=== PATIENT | female | born 1940 | race Hispanic/Latino ===

== ENCOUNTER → 2019-12-30 | Outpatient (CLI) | payer MEDICARE | END | disposition home or self-care (01) | LOC: LAB 12:25 | PROVIDERS: ATTEND Internal Medicine Cardiovascular Disease | DX: I65.21 Occlusion and stenosis of right carotid artery (principal) ==

== ENCOUNTER → 2020-01-01 | Outpatient (CLI) | payer MEDICARE ==
[~2020-01-01] MED LIST: IOHEXOL-350 50ML VIAL IV ONE
== END | disposition home or self-care (01) ==
LOC: RAH 07:57
PROVIDERS: ATTEND Internal Medicine Cardiovascular Disease
DX: I65.21 Occlusion and stenosis of right carotid artery (principal); I70.0 Atherosclerosis of aorta
CPT/HCPCS: 70498; Q9967

== ENCOUNTER 2020-10-15 11:00 | Inpatient (IN) | payer MEDICARE ==
[~2020-10-15] VITALS: Ht 165.1 cm; Wt 54.6 kg
[2020-10-15 13:13] LABS: BASOPHILS % (AUTO) 1.1 % (0.0-5.0); HEMATOCRIT 33.2 % (36-48); LYMPHOCYTES % (AUTO) 16.9 % (21.0-51.0); MEAN CORPUSCULAR HEMOGLOBIN 32.2 pg (27.0-33.0); MEAN CORPUSCULAR HGB CONC 32.5 g/dL (32.0-36.0); MEAN CORPUSCULAR VOLUME 99.1 fL (79-99); MONOCYTES % (AUTO) 11.8 % (3.0-13.0); PLATELET COUNT (AUTO) 263 K/uL (130-400); RED BLOOD CELL COUNT(AUTO) 3.35 MIL/uL (4.00-5.50); RED CELL DISTRIBUTION WIDTH 13.4 % (11.0-15.5); WHITE BLOOD COUNT (AUTO) 5.3 K/uL (4.8-10.8)
[2020-10-15 13:31] LABS: CREATININE 0.7 mg/dL (0.5-1.5)
[2020-10-20 09:12] VITALS: BP 153/70
[2020-10-20] MEDS ORDERED: METH25VI11 IJ (12:37)
[2020-10-20] MEDS ORDERED: ALEN35TA53 PO (12:37)
[2020-10-20] MEDS ORDERED: SULFASALAZINE PO (12:38)
[2020-10-20] MEDS ORDERED: ASPI-1197 PO (12:38)
[2020-10-20] MEDS ORDERED: FOLI1 PO (12:38)
[2020-10-20] MEDS ORDERED: AMLO-257 PO (12:38)
[2020-10-20] MEDS ORDERED: GABA300C PO (12:38)
[2020-10-20] MEDS ORDERED: CHOL200074 PO (12:38)
[2020-10-20] MEDS ORDERED: HYDR200T4 PO (12:38)
[2020-10-20] MEDS ORDERED: PRILOSEC PO (12:38)
[2020-10-20] MEDS ORDERED: METO-408 PO (12:38)
[2020-10-20] MEDS ORDERED: LEVO50CA4 PO (12:38)
[2020-10-20] MEDS ORDERED: CLOP75TA14 PO (12:38)
[2020-10-20] MEDS ORDERED: ATOR20TA65 PO (12:38)
[2020-10-20] MEDS ORDERED: CITA10TA89 PO (12:38)
[2020-10-20] MEDS ORDERED: DOCU100T9 PO (12:38)
[2020-10-21] VITALS (42 sets, daily range): BP systolic 105–188; BP diastolic 40–98
[2020-10-21] MEDS ORDERED: 0.9%NACL 1000ML 1,000 ML IV ONE ×2 (05:36→09:37)
[2020-10-21 06:21] LABS: INR 0.99 (0.85-1.15); PROTHROMBIN TIME 10.8 SEC (9.6-11.6)
[2020-10-21 06:22] LABS: PARTIAL THROMBOPLASTIN TIME 31.6 SEC (26.3-35.5)
[2020-10-21 06:41] LABS: APPEARANCE,URINE CLEAR (CLEAR); BILIRUBIN,URINE NEGATIVE (NEGATIVE); COLOR,URINE YELLOW (YELLOW); GLUCOSE, URINE (UA) NEGATIVE (NEGATIVE); KETONES,URINE NEGATIVE (NEGATIVE); LEUKOCYTE ESTERASE ,URINE SMALL (NEGATIVE); NITRATE,URINE NEGATIVE (NEGATIVE); OCCULT BLOOD,URINE NEGATIVE (NEGATIVE); PROTEIN,URINE NEGATIVE (NEGATIVE); UROBILINOGEN,URINE 0.2 mg/dL (0.2-1.0)
[2020-10-21 06:47] LABS: BACTERIA,URINE Rare /HPF (None Seen); RBC,URINE 0-1 /HPF (0-1); SQUAMOUS EPITHELIAL CELL,UR Rare /HPF (0-2); WBC,URINE 0-1 /HPF (0-1)
[2020-10-21] MEDS ORDERED: MIDAZOLAM HCL 1 MG/ML 2ML VIAL ONE (06:47)
[2020-10-21] MEDS ORDERED: SODIUM BICARB 50MEQ 50ML VIAL 50 ML ONE (06:55)
[2020-10-21] MEDS ORDERED: HEPARIN 10,000 UNIT/10ML (1,000 UNIT/ML) VIAL ONE (06:56)
[2020-10-21] MEDS ORDERED: NITROGLYCERIN 2 MG VIAL IV ONE (06:56)
[2020-10-21] MEDS ORDERED: LIDOCAINE HCL 400MG/20ML VIAL ONE (06:56)
[2020-10-21] MEDS ORDERED: IODIXANOL 320 MG/ML 100 ML VIAL ONE (06:58)
[2020-10-21] MEDS ORDERED: CEFAZOLIN SODIUM 1 GM VIAL ONE ×2 (07:06→07:31)
[2020-10-21] MEDS ORDERED: ONDANSETRON 4MG INJ ONE (07:09)
[2020-10-21] MEDS ORDERED: PROPOFOL 10 MG/ML 20ML VIAL IV ONE ×2 (07:09→07:45)
[2020-10-21] MEDS ORDERED: ROCURONIUM 10MG/1ML SYR 10 MG/ML ML ONE (07:09)
[2020-10-21] MEDS ORDERED: SUCCINYLCHOLINE 200MG/10ML SYR ONE (07:09)
[2020-10-21] MEDS ORDERED: FENTANYL CITRATE PF 50 MCG/1 ML 2ML VIAL ONE (07:38)
[2020-10-21] MEDS ORDERED: NICARDIPINE 25MG INJ IV ONE (07:38)
[2020-10-21] MEDS ORDERED: ATROPINE 1MG SYG IVP ONE (07:45)
[2020-10-21] MEDS ORDERED: GLYCOPYRROLATE 0.2 MG/ML 5 ML VIAL ONE (08:02)
[2020-10-21] MEDS ORDERED: NEOSTIGMINE 5MG/5ML SYR IV ONE (08:52)
[2020-10-21] MEDS: ASPIRIN 81MG CHEW TAB PO SCH (09:00)
[2020-10-21] MEDS: FOLIC ACID 1 MG TABLET PO SCH (09:00)
[2020-10-21] MEDS: HYDROXYCHLOROQUINE SULFATE 200 MG TAB PO SCH (09:00)
[2020-10-21] MEDS ORDERED: PHARMACY COMMUNICATION MISC SCH (09:00)
[2020-10-21] MEDS ORDERED: AMLODIPINE 5 MG TAB PO SCH (09:00)
[2020-10-21] MEDS ORDERED: KETOROLAC 15MG/ML VIAL (15MG/ML) IV PRN (10:45)
[2020-10-21] MEDS ORDERED: ACETAMINOPHEN 325 MG TAB PO PRN (10:45)
[2020-10-21] MEDS ORDERED: MIDAZOLAM HCL 1 MG/ML 2ML VIAL IVP PRN (10:45)
[2020-10-21] MEDS ORDERED: KETOROLAC 30MG VIAL (30MG/ML) IV PRN (11:00)
[2020-10-21] MEDS: CLOPIDOGREL 75MG TAB PO SCH (11:39)
[2020-10-21] MEDS ORDERED: ***HM***(Cholecalciferol (Vitamin D3) (Vitamin D3) 50 MCG) PO SCH (12:25)
[2020-10-21] MEDS ORDERED: METOPROLOL SUCCINATE 50 MG TAB.SR.24H PO SCH (12:31)
[2020-10-21] MEDS ORDERED: NOREPINEPHRINE 4MG/NS 250ML IV SCH (13:00)
[2020-10-21] MEDS ORDERED: NITROGLYCERIN 50MG/D5W 250ML 250 BOT IV SCH (13:00)
[2020-10-21] MEDS: DOCUSATE SODIUM 100 MG CAP PO SCH (14:05)
[2020-10-21] MEDS: CITALOPRAM 20 MG TABLET PO SCH (14:06)
[2020-10-21] MEDS: PANTOPRAZOLE 40 MG TAB DR PO SCH (14:08)
[2020-10-21] MEDS: CEFAZOLIN SODIUM 1 GM VIAL IVP SCH (16:16)
[2020-10-21] MEDS: 0.9%NACL 1000ML 1,000 ML IV SCH (20:55)
[2020-10-21] MEDS ORDERED: ATORVASTATIN 20 MG TABLET PO SCH (21:00)
[2020-10-21] MEDS ORDERED: GABAPENTIN 300 MG CAPSULE PO SCH (21:00)
[2020-10-21] MEDS ORDERED: SULFASALAZINE PO SCH (21:00)
[2020-10-21] MEDS ORDERED: SULFASALAZINE 500 MG PO SCH (21:00)
[2020-10-22] VITALS (37 sets, daily range): BP systolic 91–164; BP diastolic 42–71
[2020-10-22] MEDS: CEFAZOLIN SODIUM 1 GM VIAL IVP SCH (00:34)
[2020-10-22 04:12] LABS: HEMATOCRIT 31.3 % (36-48); RED BLOOD CELL COUNT(AUTO) 3.13 MIL/uL (4.00-5.50); RED CELL DISTRIBUTION WIDTH 13.7 % (11.0-15.5); WHITE BLOOD COUNT (AUTO) 6.1 K/uL (4.8-10.8)
[2020-10-22 04:26] LABS: CREATININE 0.7 mg/dL (0.5-1.5); POTASSIUM 3.6 mmol/L (3.5-5.1)
[2020-10-22] MEDS: 0.9%NACL 1000ML 1,000 ML IV SCH (05:00)
[2020-10-22] MEDS ORDERED: LEVOTHYROXINE 50 MCG TABLET PO SCH (06:30)
[2020-10-22] MEDS: PANTOPRAZOLE 40 MG TAB DR PO SCH (06:41)
[2020-10-22] MEDS ORDERED: ALENDRONATE SODIUM 35 MG TAB PO SCH (07:30)
[2020-10-22] MEDS: CLOPIDOGREL 75MG TAB PO SCH (09:00)
[2020-10-22] MEDS: DOCUSATE SODIUM 100 MG CAP PO SCH (09:21)
[2020-10-22] MEDS: FOLIC ACID 1 MG TABLET PO SCH (09:21)
[2020-10-22] MEDS: CITALOPRAM 20 MG TABLET PO SCH (09:21)
[2020-10-22] MEDS: HYDROXYCHLOROQUINE SULFATE 200 MG TAB PO SCH (09:22)
[2020-10-22] MEDS: ASPIRIN 81MG CHEW TAB PO SCH (09:22)
[2020-10-28] MEDS ORDERED: METHOTREXATE SODIUM/PF 25 MG/ML ML IJ SCH (09:00)
== END 2020-10-22 17:00 | disposition home or self-care (01) | DRG 36 ==
LOC: EDSTATUS 11:00 → DAHIP 10-21 05:30 → 2CH 10-21 08:11
PROVIDERS: ADMIT Internal Medicine; ATTEND Internal Medicine
PROC: B3131ZZ Fluoroscopy of Right Common Carotid Artery using Low Osmolar Contrast (ICD-10-PCS; 2020-10-21)
PROC: B3161ZZ Fluoroscopy of Right Internal Carotid Artery using Low Osmolar Contrast (ICD-10-PCS; 2020-10-21)
PROC: B3191ZZ Fluoroscopy of Right External Carotid Artery using Low Osmolar Contrast (ICD-10-PCS; 2020-10-21)
PROC: 037K3DZ Dilation of Right Internal Carotid Artery with Intraluminal Device, Percutaneous Approach (ICD-10-PCS; principal; 2020-10-21 07:15)
DX: I65.21 Occlusion and stenosis of right carotid artery (principal); I10 Essential (primary) hypertension; E78.00 Pure hypercholesterolemia, unspecified; E78.5 Hyperlipidemia, unspecified; E03.9 Hypothyroidism, unspecified; Z20.822 Contact with and (suspected) exposure to COVID-19; Z79.899 Other long term (current) drug therapy; Z82.3 Family history of stroke; Z82.49 Family history of ischemic heart disease and other diseases of the circulatory system
CPT/HCPCS: 36415; 37215; 71045; 80048; 81001; 85025; 85027; 85347; 85610; 85730; 86850; 86900; 86901; 86923; 87426; 93005; A4344; A4606; C1725; G0378; J0330; J0461; J0690; J1644; J1885; J2250; J2405; J2704; J2710; J3010; J3490; J7030; J7040; Q9967; U0003